=== PATIENT | female | born 1995 | race African-American/Black ===

== ENCOUNTER 2017-10-26 16:46 | Inpatient (IN) | payer MEDICAID ==
[~2017-10-26] VITALS: Ht 157.5 cm; Wt 59.1 kg
[2017-10-26 17:48] LABS: BASOPHILS % (AUTO) 0.4 % (0.0-2.0); EOSINOPHILS % (AUTO) 0.3 % (1.0-6.0); HEMATOCRIT 35.8 % (36-46); HEMOGLOBIN 11.8 g/dL (12.0-16.0); LYMPHOCYTES # (AUTO) 2.1 K/uL (1.0-4.8); LYMPHOCYTES % (AUTO) 19.6 % (22.0-44.0); MEAN CORPUSCULAR HEMOGLOBIN 27.7 pg (26.0-34.0); MEAN CORPUSCULAR HGB CONC 32.9 G/dL (31.0-37.0); MEAN CORPUSCULAR VOLUME 84 fL (80-100); MONOCYTES # (AUTO) 0.8 K/uL (0.1-1.0); MONOCYTES % (AUTO) 7.3 % (2.0-9.0); NEUTROPHILS # (AUTO) 7.7 K/uL (1.8-7.7); NEUTROPHILS % (AUTO) 72.4 % (40.0-70.0); PLATELET COUNT (AUTO) 239 K/uL (150-450); RED BLOOD CELL COUNT(AUTO) 4.26 MIL/uL (4.00-5.20); RED CELL DISTRIBUTION WIDTH 13.4 % (11.5-14.5)
[2017-10-26 17:57] LABS: ANION GAP 10 mmol/L (8-16); CALCIUM, TOTAL 9.3 mg/dL (8.8-10.5); CARBON DIOXIDE 27 mmol/L (22-29); CHLORIDE 105 mmol/L (98-107); CREATININE 0.65 mg/dL (0.60-1.30); GLOMERULAR FILTR. RATE CALC > 60 mL/min (>60); GLUCOSE,RANDOM 91 mg/dL (70-110); POTASSIUM 3.7 mmol/L (3.5-5.1); SODIUM SERUM 142 mmol/L (136-145); UREA NITROGEN, BLOOD 11 mg/dL (7-18)
[2017-10-26 18:03] LABS: ALANINE AMINOTRANSFERASE 31 U/L (12-78); ALKALINE PHOSPHATASE 65 U/L (46-116); ASPARTATE AMINOTRANSFERASE 56 U/L (15-37); BILIRUBIN,TOTAL 0.7 mg/dL (0.1-1.0)
[2017-10-26 19:09] LABS: AMPHET/METH SCREEN,URINE POSITIVE (NEGATIVE); BARBITURATE SCREEN, URINE NEGATIVE (NEGATIVE); BENZODIAZEPINES SCREEN,URINE NEGATIVE (NEGATIVE); CANNABINOID SCREEN,URINE POSITIVE (NEGATIVE); COCAINE SCREEN,URINE NEGATIVE (NEGATIVE); METHADONE SCREEN, URINE NEGATIVE (NEGATIVE); OPIATE SCREEN,URINE NEGATIVE (NEGATIVE)
[2017-10-26 19:13] LABS: PHENCYCLIDINE SCREEN,URINE NEGATIVE (NEGATIVE)
[2017-10-26] MEDS ORDERED: ZOLPIDEM TARTRATE 10 MG TABLET PO PRN (21:15)
[2017-10-27 00:28] VITALS: BP 115/77
[2017-10-27] MEDS ORDERED: INFLUENZA VIRUS VACCINE QVS 2017-18 (3YR+)/PF 60 MCG/0.5 ML SYRINGE IM ONE (02:30)
[2017-10-27] MEDS ORDERED: PNEUMOCOCCAL VACCINE POLYVALENT 0.5 ML VIAL [PPSV23] IM ONE (02:30)
[2017-10-27] MEDS ORDERED: ALBUTEROL SULFATE HFA 90 MCG/PUFF 8 GM INHALER IH PRN (05:30)
[2017-10-27 08:07] VITALS: BP 102/62
[2017-10-27 08:40] LABS: CHOL/HDL RATIO 1.9 (3.9-5.7); CHOLESTEROL 130 mg/dL (131-200); FREE T4 (FREE THYROXINE) 1.13 ng/dL (0.76-1.46); HDL CHOLESTEROL 70 mg/dL (40-60); LDL CHOL (CALC.) 52 mg/dL (0-130); THYROID STIMULATING HORMONE 0.47 uIU/mL (0.36-3.74); TRIGLYCERIDES 41 mg/dL (15-150)
[2017-10-27 09:05] LABS: HEMOGLOBIN A1C 5.2 % (4.5-6.2)
[2017-10-27 09:57] LABS: ALANINE AMINOTRANSFERASE 27 U/L (12-78); ALBUMIN 3.6 g/dL (3.4-5.0); ALKALINE PHOSPHATASE 63 U/L (46-116); ANION GAP 10 mmol/L (8-16); ASPARTATE AMINOTRANSFERASE 47 U/L (15-37); BILIRUBIN,TOTAL 1.2 mg/dL (0.1-1.0); CALCIUM, TOTAL 8.7 mg/dL (8.8-10.5); CARBON DIOXIDE 27 mmol/L (22-29); CHLORIDE 106 mmol/L (98-107); CREATININE 0.74 mg/dL (0.60-1.30); GLOMERULAR FILTR. RATE CALC > 60 mL/min (>60); GLUCOSE,RANDOM 77 mg/dL (70-110); POTASSIUM 3.8 mmol/L (3.5-5.1); SODIUM SERUM 143 mmol/L (136-145); TOTAL PROTEIN, SERUM 6.2 g/dL (6.4-8.2); UREA NITROGEN, BLOOD 14 mg/dL (7-18)
[2017-10-27] MEDS ORDERED: IBUPROFEN 400 MG TABLET PO PRN (13:45)
[2017-10-27] MEDS ORDERED: ACETAMINOPHEN 325 MG TABLET PO PRN (13:45)
[2017-10-27 17:42] VITALS: BP 108/77
[2017-10-28 06:03] VITALS: BP 110/61
[2017-10-28 08:07] VITALS: BP 120/70
[2017-10-28 16:24] VITALS: BP 114/64
[2017-10-29 06:31] VITALS: BP 122/76
[2017-10-29 08:02] VITALS: BP 124/66
[2017-10-29] MEDS: OLANZapine 5 MG RAPDIS TABLET PO SCH ×2 (11:08→16:37)
[2017-10-29 16:03] VITALS: BP 106/63
[2017-10-29] MEDS: LORazepam 2 MG TABLET PO PRN (16:37)
[2017-10-29] MEDS: HALOPERIDOL 5 MG TABLET PO PRN (16:37)
[2017-10-30 07:09] VITALS: BP 110/63
[2017-10-30 08:18] VITALS: BP 94/60
[2017-10-30] MEDS: OLANZapine 5 MG RAPDIS TABLET PO SCH ×2 (08:46→16:51)
[2017-10-30 16:40] VITALS: BP 105/65
[2017-10-30] MEDS: HALOPERIDOL 5 MG TABLET PO PRN (16:51)
[2017-10-30] MEDS: LORazepam 2 MG TABLET PO PRN (16:51)
[2017-10-31 06:58] VITALS: BP 110/62
[2017-10-31 08:00] VITALS: BP 110/60
[2017-10-31] MEDS: OLANZapine 5 MG RAPDIS TABLET PO SCH ×2 (09:09→16:34)
[2017-10-31] MEDS ORDERED: OLAN5TAB40 PO (15:41)
[2017-10-31 16:05] VITALS: BP 124/66
== END 2017-10-31 18:20 | disposition home or self-care (01) | DRG 775 ==
LOC: EMS 16:47 → B2S 21:23 → B3A 10-28 16:50
PROVIDERS: ADMIT Psychiatry & Neurology Child & Adolescent Psychiatry; ATTEND Psychiatry & Neurology Child & Adolescent Psychiatry
DX: F19.959 Other psychoactive substance use, unspecified with psychoactive substance-induced psychotic disorder, unspecified (principal); F10.10 Alcohol abuse, uncomplicated; D64.9 Anemia, unspecified; F12.90 Cannabis use, unspecified, uncomplicated; F41.9 Anxiety disorder, unspecified; J45.909 Unspecified asthma, uncomplicated
CPT/HCPCS: 83036; 84439; 84443; 90471; 99285; G0480

== ENCOUNTER 2021-07-20 13:56 | Emergency (ER) | payer MEDICAID ==
[~2021-07-20] VITALS: Ht 160 cm; Wt 65.9 kg
[~2021-07-20 13:56] MED LIST: OLAN5TAB94 PO
[2021-07-20 15:53] LABS: BASOPHILS % (AUTO) 0.9 % (0.0-2.0); EOSINOPHILS % (AUTO) 0.5 % (1.0-6.0); HEMATOCRIT 39.1 % (36-46); HEMOGLOBIN 12.6 g/dL (12.0-16.0); LYMPHOCYTES # (AUTO) 1.9 K/uL (1.0-4.8); LYMPHOCYTES % (AUTO) 26.7 % (22.0-44.0); MEAN CORPUSCULAR HEMOGLOBIN 26.3 pg (26.0-34.0); MEAN CORPUSCULAR HGB CONC 32.2 G/dL (31.0-37.0); MEAN CORPUSCULAR VOLUME 82 fL (80-100); MONOCYTES # (AUTO) 0.6 K/uL (0.1-1.0); NEUTROPHILS # (AUTO) 4.6 K/uL (1.8-7.7); NEUTROPHILS % (AUTO) 63.9 % (40.0-70.0); PLATELET COUNT (AUTO) 250 K/uL (150-450); RED BLOOD CELL COUNT(AUTO) 4.78 MIL/uL (4.00-5.20); RED CELL DISTRIBUTION WIDTH 14.3 % (11.5-14.5)
[2021-07-20 16:04] LABS: ANION GAP 14 mmol/L (8-16); CALCIUM, TOTAL 8.8 mg/dL (8.8-10.5); CARBON DIOXIDE 25 mmol/L (22-29); CHLORIDE 101 mmol/L (98-107); CREATININE 0.79 mg/dL (0.60-1.30); GLOMERULAR FILTR. RATE CALC > 60 mL/min (>60); GLUCOSE,RANDOM 88 mg/dL (70-110); POTASSIUM 3.8 mmol/L (3.5-5.1); SODIUM SERUM 140 mmol/L (136-145); UREA NITROGEN, BLOOD 14 mg/dL (7-18)
[2021-07-20 16:06] LABS: ALANINE AMINOTRANSFERASE 19 U/L (12-78); ALKALINE PHOSPHATASE 70 U/L (46-116); ASPARTATE AMINOTRANSFERASE 24 U/L (15-37); BILIRUBIN,TOTAL 0.7 mg/dL (0.1-1.0); TOTAL PROTEIN, SERUM 7.2 g/dL (6.4-8.2)
[2021-07-20] MEDS ORDERED: LORazepam 1 MG TABLET PO ONE (17:00)
[2021-07-20] MEDS ORDERED: HALOPERIDOL 5 MG TABLET PO ONE (17:00)
[2021-07-20 17:31] VITALS: BP 131/87
[2021-07-20 17:31] LABS: AMPHET/METH SCREEN,URINE POSITIVE (NEGATIVE); BARBITURATE SCREEN, URINE NEGATIVE (NEGATIVE); BENZODIAZEPINES SCREEN,URINE NEGATIVE (NEGATIVE); CANNABINOID SCREEN,URINE NEGATIVE (NEGATIVE); COCAINE SCREEN,URINE NEGATIVE (NEGATIVE); METHADONE SCREEN, URINE NEGATIVE (NEGATIVE); OPIATE SCREEN,URINE NEGATIVE (NEGATIVE)
[2021-07-20 17:35] LABS: PHENCYCLIDINE SCREEN,URINE NEGATIVE (NEGATIVE)
== END 2021-07-20 17:40 | disposition home or self-care (01) ==
LOC: EMS 13:59
DX: F29 Unspecified psychosis not due to a substance or known physiological condition (principal); F15.10 Other stimulant abuse, uncomplicated; D72.819 Decreased white blood cell count, unspecified; F20.9 Schizophrenia, unspecified; F17.210 Nicotine dependence, cigarettes, uncomplicated; F14.90 Cocaine use, unspecified, uncomplicated; F12.90 Cannabis use, unspecified, uncomplicated; F11.90 Opioid use, unspecified, uncomplicated
CPT/HCPCS: 36415; 80053; 80307; 85025; 99284; G0480

== ENCOUNTER 2024-09-10 13:42 | Emergency (ER) | payer MEDICAID ==
[~2024-09-10] VITALS: Ht 157.5 cm; Wt 63.6 kg
[~2024-09-10 13:42] MED LIST changes: +ACYC400T20 PO; +METH4TAB95 PO
[2024-09-10 13:53] VITALS: BP 115/62; PULSE 102; RESP 20; TEMP 100.9; O2SAT 98
[2024-09-10 14:16] LABS: COVID AG,FIA SOURCE NASAL SWAB
[2024-09-10 14:38] LABS: SARS-COV2 (COVID) ANTIGEN,FIA Negative (Negative)
[2024-09-10 14:40] LABS: INFLUENZA TYPE B NEGATIVE FOR TYPE B (NEGATIVE)
[2024-09-10 14:42] LABS: INFLUENZA TYPE A POSITIVE FOR TYPE A (NEGATIVE); RAPID GROUP A STREP NEGATIVE (NEGATIVE)
[2024-09-10] MEDS ORDERED: IBUP-1492 PO (15:45)
[2024-09-10] MEDS ORDERED: ACET-2247 PO (15:45)
[2024-09-10] MEDS: ALBUTEROL SULFATE HFA 90 MCG/PUFF 8 GM INHALER IH ONE (16:03)
[2024-09-10] MEDS: ACETAMINOPHEN 500 MG TABLET PO ONE (16:04)
== END 2024-09-10 16:04 | disposition home or self-care (01) ==
LOC: EMS 13:42
DX: J11.1 Influenza due to unidentified influenza virus with other respiratory manifestations (principal); F12.90 Cannabis use, unspecified, uncomplicated; J45.909 Unspecified asthma, uncomplicated; F17.210 Nicotine dependence, cigarettes, uncomplicated; F20.9 Schizophrenia, unspecified; Z20.822 Contact with and (suspected) exposure to COVID-19
CPT/HCPCS: 99283; 87426; 87430; 87804; 94640; J3535